=== PATIENT | female | born 1935 | race Caucasian/White ===

== ENCOUNTER → 2019-07-28 | Outpatient (CLI) | payer MEDICARE, OTHER ==
[~2019-07-28] MED LIST: ASPI-612 PO; CALC600T12 PO; CHOL200074 PO; DULO30CA52 PO; FLUT1DIS INH; FURO-149 PO; MULT-1085 PO; POTA10TA15 PO; SIMV20TA PO
== END | disposition home or self-care (01) ==
LOC: RAD 15:38
PROVIDERS: ATTEND Internal Medicine Cardiovascular Disease
DX: R13.12 Dysphagia, oropharyngeal phase (principal); R49.0 Dysphonia; R47.1 Dysarthria and anarthria; G20 Parkinson's disease
CPT/HCPCS: 74230

== ENCOUNTER 2024-07-13 11:19 | Day surgery (SDC) | payer BC, MEDICARE, OTHER ==
[~2024-07-13] VITALS: Ht 162.6 cm; Wt 61.0 kg
[~2024-07-13 11:19] MED LIST changes: -CALC600T12 PO; +CALC600T35 PO; +SIMV-342 PO; -SIMV20TA PO
[2024-07-13 12:00] VITALS: BP 125/43; PULSE 53; RESP 18; TEMP 97.8
[2024-07-13] MEDS ORDERED: propofol 10mg/ml 20ml vial IV ONE (12:30)
[2024-07-13] MEDS ORDERED: DILT-36 PO (12:55)
[2024-07-13] MEDS ORDERED: APIX5TAB3 PO (12:55)
[2024-07-13] MEDS ORDERED: FURO80TA3 PO (12:55)
[2024-07-13] MEDS ORDERED: LISI10TA27 PO (12:55)
[2024-07-13] MEDS ORDERED: DULO60CA65 PO (12:55)
[2024-07-13] MEDS ORDERED: LAN0.125T PO (12:55)
[2024-07-13] MEDS ORDERED: NAPR220T67 PO (12:55)
[2024-07-13] MEDS ORDERED: EZET10TA48 PO (12:55)
[2024-07-13] MEDS ORDERED: ALBU18HF2 INH (12:55)
[2024-07-13] MEDS ORDERED: CARB1TAB36 PO (12:55)
[2024-07-13 12:56] VITALS: BP 123/46; PULSE 52; RESP 20; O2SAT 98
[2024-07-13] MEDS ORDERED: [UNRECOGNIZED DRUG - OTHER] PO (12:56)
[2024-07-13] MEDS ORDERED: ACET-1008 PO (12:56)
[2024-07-13] MEDS ORDERED: [UNRECOGNIZED DRUG - OTHER] PO (12:56)
[2024-07-13] MEDS ORDERED: OLOP5DRO21 EACHEYE (12:56)
[2024-07-13] MEDS ORDERED: PROP1DRO7 EACHEYE (12:56)
[2024-07-13] MEDS ORDERED: [UNRECOGNIZED DRUG - OTHER] PO (12:56)
[2024-07-13 13:00] VITALS: BP 111/53; PULSE 51; RESP 12; O2SAT 95
[2024-07-13 13:10] VITALS: BP 111/42; PULSE 49; RESP 17; O2SAT 94
[2024-07-13 13:20] VITALS: BP 122/46; PULSE 49; RESP 13; O2SAT 93
[2024-07-13 13:40] VITALS: BP 130/44; PULSE 48; RESP 19; O2SAT 92
[2024-07-13] MEDS ORDERED: ringers solution, lacted 1,000 ML IV SCH (14:35)
[2024-07-13] MEDS ORDERED: ondansetron/PF 4mg/2ml inj IV PRN (14:35)
[2024-07-13] MEDS ORDERED: fentaNYL/PF 50MCG/1 ML 2ML syringe IV PRN (14:35)
== END 2024-07-13 13:50 | disposition home or self-care (01) ==
LOC: GI LAB 11:19
PROVIDERS: ATTEND Internal Medicine Gastroenterology
DX: R13.10 Dysphagia, unspecified (principal); K31.89 Other diseases of stomach and duodenum; J44.9 Chronic obstructive pulmonary disease, unspecified; G20.A1 Parkinson's disease without dyskinesia, without mention of fluctuations; I10 Essential (primary) hypertension; G47.33 Obstructive sleep apnea (adult) (pediatric); I48.91 Unspecified atrial fibrillation; Z90.710 Acquired absence of both cervix and uterus
CPT/HCPCS: 43239; J2405; J2704; J3010; J7030; Z7512; 88305; A4620; J7120